=== PATIENT | female | born 1935 | race Caucasian/White ===

== ENCOUNTER 2019-10-22 12:40 | Outpatient (CLI) | payer MEDICARE ==
[2019-10-22 13:41] LABS: Hemoglobin 13.6 g/dL (12.0-16.0)
[2019-10-22 13:59] LABS: Anion Gap 14 mmol/L (10-20); BUN (Urea Nitrogen) 12 mg/dL (9.8-20.1); Calc. Creatinine Clearance 0 mL/min (70-130); Calcium 9.6 mg/dL (7.8-10.44); Carbon Dioxide 26 mmol/L (23-31); Chloride 102 mmol/L (98-107); Estimated GFR-MDRD 35; Glucose 96 mg/dL (83-110); Phosphorus 3.2 mg/dL (2.3-4.7); Potassium 3.9 mmol/L (3.5-5.1); Sodium 138 mmol/L (136-145)
--- NOTE | 2019-10-22 14:49 | ULT ---
US Renal Bilateral STANDARD History: Chronic kidney disease Comparison: None. Findings: Real-time grayscale and color evaluation of the kidneys and urinary bladder was performed. The right kidney measures 8.1 x 2.8 x 3 cm and left kidney measures 8.3 x 3.2 x 3.7 cm. No renal mass, hydronephrosis, or abnormal calcifications. Post void urinary bladder volume is 114 mL . Impression: 1. Abnormally elevated postvoid volume of 114 mL. 2. Small bilateral kidneys suggesting chronic medical renal disease. 3. No evidence for obstructive uropathy.
[2019-10-22 22:12] LABS: Creatinine, Urine 25.87 mg/dL (47-110); Protein, Urine Random Quant Less than 10 mg/dL (1-14)
[2019-10-24 16:37] LABS: ANA Symphony (Qualitative) Negative (Negative); ANA Symphony (Quantitative) 0.4 Ratio (< 0.7 Negative); dsDNA IgG Antibody 1.4 IU/mL (<10 Negative)
== END 2019-10-22 12:41 | disposition home or self-care (01) ==
LOC: MADULT 12:40
PROVIDERS: ATTEND Internal Medicine Nephrology
DX: I12.9 Hypertensive chronic kidney disease with stage 1 through stage 4 chronic kidney disease, or unspecified chronic kidney disease (principal); N18.3 Chronic kidney disease, stage 3 (moderate)
CPT/HCPCS: 36415; 76770; 80048; 82306; 82570; 83970; 84100; 84156; 85014; 85018; 86038; 86225

== ENCOUNTER 2020-11-22 11:20 | Outpatient (CLI) | payer MEDICARE | END 2020-11-22 11:21 | disposition home or self-care (01) | LOC: MADRAD 11:20 | PROVIDERS: ATTEND Family Medicine | DX: S39.92XA Unspecified injury of lower back, initial encounter (principal); M54.41 Lumbago with sciatica, right side; W19.XXXA Unspecified fall, initial encounter | CPT/HCPCS: 72072; 72100; 72170; 72202 ==

== ENCOUNTER 2022-01-11 16:46 | Outpatient (CLI) | payer MEDICARE | END 2022-01-11 16:47 | disposition home or self-care (01) | LOC: MADRAD 16:46 | PROVIDERS: ATTEND Family Medicine | DX: R10.9 Unspecified abdominal pain (principal) | CPT/HCPCS: 74018 ==

== ENCOUNTER 2022-03-20 11:35 | Emergency (ER) | payer MEDICARE ==
[2022-03-20 12:23] LABS: #Basophils 0.1 thou/uL (0.0-0.2); #Eosinphils 0.2 thou/uL (0.0-0.7); #Lymphocytes 1.6 thou/uL (1.20-3.40); %Basophils 1.3 % (0.0-1.0); %Eosinophils 2.7 % (0.0-10.0); %Lymphocytes 19.8 % (21.0-51.0); %Monocytes 12.7 % (0.0-10.0); %Neutrophils 63.5 % (42.0-75.0); Hemoglobin 13.1 g/dL (12.0-16.0); Mean Corpuscular HGB CONC 31.2 g/dL (32.0-36.0); Mean Corpuscular Hemoglobin 29.3 pg (27.0-31.0); Mean Platelet Volume 8.3 fL (7.4-10.4); Platelet Count 207 thou/uL (130-400); Red Blood Cell (RBC) Count 4.47 mill/uL (4.20-5.40); White Blood Cell (WBC) Count 7.9 thou/uL (4.8-10.8)
[2022-03-20 12:38] LABS: ALT (SGPT) 9 U/L (8-55); AST (SGOT) 16 U/L (5-34); Alkaline Phosphatase 80 U/L (40-110); Anion Gap 11 mmol/L (10-20); BUN (Urea Nitrogen) 19 mg/dL (9.8-20.1); Bilirubin, Total 0.4 mg/dL (0.2-1.2); Calc. Creatinine Clearance 0 mL/min (70-130); Calcium 9.6 mg/dL (7.8-10.44); Carbon Dioxide 25 mmol/L (23-31); Chloride 108 mmol/L (98-107); Estimated GFR 30; Glucose 109 mg/dL (83-110); Potassium 4.3 mmol/L (3.5-5.1); Sodium 140 mmol/L (136-145)
[2022-03-20] MEDS ORDERED: Boostrix 0.5 ML (Tdap) VIAL ONE ×2 (13:03→13:07)
[2022-03-20 13:07] LABS: Bilirubin Negative (Negative); Blood, Urine Negative (Negative); Clarity Clear (Clear); Glucose, Urine (Dipstick) Negative (Negative); Ketone, Urine Negative (Negative); Leukocyte Negative (Negative); Nitrite Negative (Negative); Protein, Urine (Dipstick) Negative (Neg-Trace); Urobilinogen 0.2 mg/dL (Less than 2); pH, Urine 5.5 (5.0-9.0)
[2022-03-20] MEDS ORDERED: Aspirin Chewable 81 MG TAB ONE (13:26)
== END 2022-03-20 14:58 | disposition short-term general hospital (02) ==
LOC: MADERS 11:35
DX: S10.93XA Contusion of unspecified part of neck, initial encounter (principal); S80.812A Abrasion, left lower leg, initial encounter; S80.811A Abrasion, right lower leg, initial encounter; I63.9 Cerebral infarction, unspecified; R29.702 NIHSS score 2; I10 Essential (primary) hypertension; K21.9 Gastro-esophageal reflux disease without esophagitis; E78.5 Hyperlipidemia, unspecified; E78.00 Pure hypercholesterolemia, unspecified; W18.30XA Fall on same level, unspecified, initial encounter; Z23 Encounter for immunization; Z79.899 Other long term (current) drug therapy
CPT/HCPCS: 51701; 70450; 71045; 72125; 80053; 81003; 83605; 83735; 84484; 85025; 90471; 90715; 93005; 94760

== ENCOUNTER 2022-08-22 17:13 | Outpatient (CLI) | payer MEDICARE | END 2022-08-22 17:14 | disposition home or self-care (01) | LOC: MADRAD 17:13 | PROVIDERS: ATTEND Family Medicine | DX: M25.551 Pain in right hip (principal); M25.552 Pain in left hip; R26.9 Unspecified abnormalities of gait and mobility; R26.89 Other abnormalities of gait and mobility; M16.0 Bilateral primary osteoarthritis of hip; M81.0 Age-related osteoporosis without current pathological fracture | CPT/HCPCS: 72170 ==

== ENCOUNTER 2022-10-04 00:05 | Emergency (ER) | payer MEDICARE ==
[2022-10-04] MEDS ORDERED: Mineral Oil ENEMA ONE (00:39)
== END 2022-10-04 01:29 | disposition home or self-care (01) ==
LOC: MADERS 00:05 → EEVIPCON 00:05 → MADERS 01:29
DX: K56.41 Fecal impaction (principal); E78.5 Hyperlipidemia, unspecified; E78.00 Pure hypercholesterolemia, unspecified; I10 Essential (primary) hypertension
CPT/HCPCS: 99283

== ENCOUNTER 2023-04-19 17:28 | Emergency (ER) | payer OTHER, MEDICARE | END 2023-04-19 19:10 | disposition home or self-care (01) | LOC: MADERS 17:28 | DX: S09.90XA Unspecified injury of head, initial encounter (principal); S00.03XA Contusion of scalp, initial encounter; I10 Essential (primary) hypertension; K21.9 Gastro-esophageal reflux disease without esophagitis; E78.00 Pure hypercholesterolemia, unspecified; W01.10XA Fall on same level from slipping, tripping and stumbling with subsequent striking against unspecified object, initial encounter; Y93.01 Activity, walking, marching and hiking; Y92.009 Unspecified place in unspecified non-institutional (private) residence as the place of occurrence of the external cause; Z79.899 Other long term (current) drug therapy | CPT/HCPCS: 70450; 72125 ==

== ENCOUNTER 2023-06-10 14:07 | Emergency (ER) | payer MEDICARE | END 2023-06-10 16:13 | disposition home or self-care (01) | LOC: MADERS 14:07 | DX: S09.90XA Unspecified injury of head, initial encounter (principal); S00.93XA Contusion of unspecified part of head, initial encounter; S00.01XA Abrasion of scalp, initial encounter; I10 Essential (primary) hypertension; E78.00 Pure hypercholesterolemia, unspecified; K21.9 Gastro-esophageal reflux disease without esophagitis; W01.198A Fall on same level from slipping, tripping and stumbling with subsequent striking against other object, initial encounter; Y93.89 Activity, other specified; Z79.899 Other long term (current) drug therapy | CPT/HCPCS: 70450; 72125 ==